=== PATIENT | male | born 2000 | race Caucasian/White ===

== ENCOUNTER 2023-09-28 08:43 | Outpatient (CLI) | payer BC, SELFPAY ==
--- NOTE | ~2023-09-28 | MR_ITS ---
EXAMINATION: MR shoulder RT w con DATE: 09/28/2023 10:25 INDICATION: Chronic right shoulder pain TECHNIQUE: Magnetic resonance imaging (MRI) of the right shoulder was performed following intra-greta cular gadolinium contrast injection and without intravenous contrast. Details of the glenohumeral ruby nt injection have been dictated separately. Sequences included axial T2-weighted FS FSE, axial T1-we ighted FS FSE, coronal oblique T1-weighted FS FSE, coronal oblique T2-weighted FSE, sagittal T2-weigh marian FS FSE, sagittal T1-weighted FSE, and ABER (abduction external rotation) T1-weighted FS FSE. COMPARISON: None. FINDINGS: Coracoacromial arch: The acromion undersurface is curved in morphology (type II). The coracoacromial ligament is normal. A cromioclavicular joint is normal. Rotator cuff: Mild supraspinatus tendinopathy without tear. The infraspinatus and teres minor tendons are normal. O r some intrasubstance contrast imbibition within the cephalad aspect of the otherwise normal-appearin g subscapularis tendon related to small amount of extravasation occurring at the site and time of the beginning of the injection. Normal rotator cuff muscle bulk and signal. Biceps tendon, glenoid labrum and glenohumeral cartilage: Long head of the biceps tendon is intact. There is a superior, anterior to posterior tear of the mike oid labrum (SLAP tear) extending posteriorly from a normal anterosuperior sublingual foramen at the 1 :00 position to the 10:30 position of the posterosuperior labrum. Irregular frayed appearance to the proximal middle glenohumeral ligament consistent with partial tear. Minimal cartilage is normal. Bones and other: Normal marrow signal with no edema, fracture or abnormal marrow replacing process. Small amount of fl uid in the subacromial/subdeltoid bursa consistent with mild bursitis. IMPRESSION: 1. SLAP tear of the superior to posterosuperior glenoid labrum with likely associated partial tear of the proximal middle glenohumeral ligament. 2. Mild supraspinatus tendinopathy without tear. 2. Mild subacromial/subdeltoid bursitis. Reviewed, dictated and finalized at location A. IMPRESSION: 1. SLAP tear of the superior to posterosuperior glenoid labrum with likely asso ciated partial tear of the proximal middle glenohumeral ligament. 2. Mild supraspinatus tendinopathy without tear. 2. Mild subacromial/subdeltoid bursitis.
--- NOTE | ~2023-09-28 | XR_ITS ---
EXAMINATION: XR arthrogram shoulder RT DATE: 09/28/2023 09:58 INDICATION: Chronic right shoulder pain TECHNIQUE: A time-out was performed to verify the patient's name, date of , and procedure to b e performed. The procedure including the risks, benefits, and alternatives was discussed with the pat ient. Risks discussed included bleeding and infection. The patient understood the risks and agreed to proceed. The skin overlying the rotator cuff interval of the right glenohumeral joint was prepped a nd draped in usual sterile fashion. Anesthetic was administered with 1% lidocaine subcutaneously. A 22 G needle was advanced under fluoroscopic guidance into the joint. Injection of 1 mL of Omnipaque 240 confirmed intra-articular position of the needle. Subsequently, injectate consisting of 12 mL o f 2:1:1 mixture of sterile saline:Omnipaque 240:1% lidocaine mixed 200:1 with 529 mg/mL Multihance ga dolinium contrast was injected with intra-articular administration confirmed with intermittent fluoro scopy. The needle was removed and the entry site was cleaned and dressed. There were no immediate co mplications. Fluoroscopy exposure time was 0.5 minutes. The total number of images was 125. Total DAP was 1.953 Gycm^2 FINDINGS: Real-time fluoroscopy demonstrates the needle and contrast in the right glenohumeral joint. IMPRESSION: 1. Successful right glenohumeral joint injection of dilute gadolinium contrast mixture for subsequent MRI arthrogram which will be dictated separately. Reviewed, dictated and finalized at location A.
== END 2023-09-28 08:44 | disposition home or self-care (01) ==
PROVIDERS: Visit Provider Orthopaedic Surgery
DX: M75.51 Bursitis of right shoulder (principal); S43.431A Superior glenoid labrum lesion of right shoulder, initial encounter; X58.XXXA Exposure to other specified factors, initial encounter
CPT/HCPCS: 23350; 73040; 73222; A9577; Q9966